=== PATIENT | male | born 1970 | race Caucasian/White ===

== ENCOUNTER 2021-04-25 12:22 | Outpatient (CLI) | payer MEDICAID ==
[2021-04-25 19:25] LABS: BASOPHILS # (AUTO) 0.1 10^3/uL (0.0-0.1); BASOPHILS % (AUTO) 1.7 %; EOSINOPHILS # (AUTO) 0.1 10^3/uL (0.0-0.7); EOSINOPHILS % (AUTO) 2.2 %; HCT - HEMATOCRIT 45.9 % (42.0-52.0); HGB - HEMOGLOBIN 14.9 g/dL (14.0-18.0); LYMPHOCYTES # (AUTO) 1.6 10^3/uL (1.5-3.5); LYMPHOCYTES % (AUTO) 35.7 %; MEAN CORPUSCULAR HEMOGLOBIN 30.7 pg (27.0-31.0); MEAN CORPUSCULAR HGB CONC 32.5 g/dL (32.0-36.0); MEAN CORPUSCULAR VOLUME 94.6 fL (80.0-94.0); MEAN PLATELET VOLUME 11.2 fL (7.4-11.4); MONOCYTES # (AUTO) 0.5 10^3/uL (0.0-1.0); MONOCYTES % (AUTO) 9.8 %; NEUTROPHILS # (AUTO) 2.3 10^3/uL (1.5-6.6); NEUTROPHILS % (AUTO) 50.2 %; PLT - PLATELET COUNT 202 10^3/uL (130-450); RED BLOOD COUNT 4.85 10^6/uL (4.70-6.10); RED CELL DISTRIBUTION WIDTH 12.2 % (12.0-15.0); WHITE BLOOD COUNT 4.6 x10^3/uL (4.8-10.8)
[2021-04-25 19:40] LABS: ALBUMIN 4.7 g/dL (3.2-5.5); ALBUMIN/GLOBULIN RATIO 1.6 (1.0-2.2); ALKALINE PHOSPHATASE 45 IU/L (42-121); ALT ALANINE AMINOTRANSFERASE 28 IU/L (10-60); AST ASPARTATE AMINOTRANSFERASE 21 IU/L (10-42); BILIRUBIN,TOTAL 0.8 mg/dL (0.2-1.0); BUN - BLOOD UREA NITROGEN 16 mg/dL (6-20); CALCIUM 9.6 mg/dL (8.5-10.3); CARBON DIOXIDE - CO2 29 mmol/L (21-32); CHLORIDE 103 mmol/L (101-111); CHOL/HDL RATIO 3.4 (<5.0); CHOLESTEROL 240 mg/dL; CREATININE 0.9 mg/dL (0.6-1.2); GFR - MDRD 89 (>89); GLUCOSE 93 mg/dL (70-100); HDL CHOLESTEROL 70 mg/dL; LDL CHOLESTEROL,CALCULATED 151 mg/dL; LDL/HDL RATIO 2.2 (<3.6); POTASSIUM 4.4 mmol/L (3.5-5.0); SODIUM 141 mmol/L (135-145); TOTAL PROTEIN 7.6 g/dL (6.7-8.2); TRIGLYCERIDES 97 mg/dL; VLDL CHOLESTEROL 19 mg/dL
== END 2021-04-25 12:23 | disposition home or self-care (01) ==
LOC: LAB.S 12:22
PROVIDERS: ATTEND Internal Medicine
DX: Z00.00 Encounter for general adult medical examination without abnormal findings (principal)
CPT/HCPCS: 36415; 80053; 80061; 83721; 84153; 85025

== ENCOUNTER 2021-04-30 06:43 | Day surgery (SDC) | payer MEDICAID ==
[2021-04-30] MEDS ORDERED: LACTATED RINGERS 1,000 ML IV ONE (07:11)
[2021-04-30] MEDS ORDERED: LIDOCAINE-PF 2% 10 ML AMP SUBQ ONE (07:23)
[2021-04-30] MEDS ORDERED: PROPOFOL 500 MG/50 ML 500 MG/50 ML VIAL ONE (07:23)
--- NOTE | 2021-04-30 07:26 | ANESTHESIA ---
Pre-Anesthesia VS, & Labs - Diagnosis GI Bleed - Procedure colonoscopy Vital Signs: Temp Pulse Resp BP Pulse Ox 36.1 C L 57 L 16 124/86 H 97 04/30/21 06:45 04/30/21 06:45 04/30/21 06:45 04/30/21 06:45 04/30/21 06:45 Height: 6 ft Weight (kg): 93 kg Body Mass Index: 27.8 BMI Classification: Overweight - NPO >8 hours - Lab Results Lab results reviewed: Yes Home Medications and Allergies Home Medications: Ambulatory Orders No Known Home Medications 04/30/21 No Known Home Medications 04/30/21 Allergies/Adverse Reactions: Allergies Allergy/AdvReac Type Severity Reaction Status Date / Time No Known Drug Allergies Allergy Verified 04/30/21 07:11 Anes History & Medical History - Anesthetic History Anesthesia Complications: reports: No previous complications Family history of Anesthesia Complications: Denies Family history of Malignant Hyperthermia: Denies - Medical History Cardiovascular: reports: None Pulmonary: reports: None, Other Gastrointestinal: reports: GI bleed Urinary: reports: None Musculoskeletal: reports: Other Endocrine/Autoimmune: reports: None Skin: reports: None Exam General: Alert, Oriented x3 Dental: WNL Mouth Openin Fingerbreadth Neck Mobility: Normal Mallampati classification: II Thyromental Distance: 4-6 cm Respiratory: Lungs clear, Normal breath sounds, No respiratory distress Cardiovascular: Regular rate Neurological: Normal speech Mental/Cognitive Status: Alert/Oriented X3, Normal for patient Cognitive Status: Within normal limits Plan Anesthesia Type: Total IV Consent for Procedure(s) Verified and Reviewed: Yes Code Status: Attempt Resuscitation ASA classification: 2-Mild systemic disease Is this case an emergency?: No
[2021-04-30] MEDS ORDERED: PROPOFOL 200 MG/20 ML VIAL IVP ONE (11:29)
[2021-04-30] MEDS ORDERED: LACTATED RINGERS 100 ML IV ONE (11:45)
[2021-04-30 13:14] VITALS: BP 128/92
--- NOTE | 2021-04-30 17:54 | ANESTHESIA POST OP EVALUATION ---
Anesthesia Post Eval - Post Anesthesia Eval Vitals: Last Vital Signs Temp 36.2 C L 04/30/21 12:45 Pulse 61 04/30/21 12:45 Resp 15 04/30/21 12:45 BP 128/92 H 04/30/21 12:45 Pulse Ox 99 04/30/21 12:45 CV Function Including HR & BP: Stable Pain Control: Satisfactory Nausea & Vomiting: Negative Mental Status: Baseline Respiratory Status: Airway Patent Hydration Status: Satisfactory Anesthesia Complications: None
== END 2021-04-30 06:44 | disposition home or self-care (01) ==
LOC: SDS 06:43
PROVIDERS: ATTEND Surgery
PROC: 0DBP8ZX Excision of Rectum, Via Natural or Artificial Opening Endoscopic, Diagnostic (ICD-10-PCS; 2021-04-30)
PROC: 0DBM8ZZ Excision of Descending Colon, Via Natural or Artificial Opening Endoscopic (ICD-10-PCS; principal; 2021-04-30 07:30)
DX: C20 Malignant neoplasm of rectum (principal); K63.5 Polyp of colon; K64.8 Other hemorrhoids
CPT/HCPCS: 45380; J7120

== ENCOUNTER 2021-05-17 12:58 | Outpatient (CLI) | payer MEDICAID | END 2021-05-17 12:59 | disposition home or self-care (01) | LOC: COV 12:58 | PROVIDERS: ATTEND Student in an Organized Health Care Education/Training Program | DX: Z01.812 Encounter for preprocedural laboratory examination (principal); Z20.822 Contact with and (suspected) exposure to COVID-19 ==

== ENCOUNTER 2021-06-04 14:16 | Outpatient (CLI) | payer MEDICAID | END 2021-06-04 14:17 | disposition home or self-care (01) | LOC: COV 14:16 | PROVIDERS: ATTEND Internal Medicine Gastroenterology | DX: Z01.812 Encounter for preprocedural laboratory examination (principal); Z20.822 Contact with and (suspected) exposure to COVID-19 ==

== ENCOUNTER 2021-06-21 10:14 | Day surgery (SDC) | payer MEDICAID ==
[2021-06-21] MEDS ORDERED: LACTATED RINGERS 1,000 ML IV ONE ×2 (10:50→11:43)
--- NOTE | 2021-06-21 10:53 | ANESTHESIA ---
Pre-Anesthesia VS, & Labs - Diagnosis Rectal Cancer - Procedure Port placement Vital Signs: Temp Pulse Resp BP Pulse Ox 36.3 C L 42 L 16 113/72 98 06/21/21 10:22 06/21/21 10:22 06/21/21 10:22 06/21/21 10:22 06/21/21 10:22 Height: 5 ft 11 in Weight (kg): 91.2 kg Body Mass Index: 28.0 BMI Classification: Overweight - NPO Last Fluid Intake: 0500 tea Home Medications and Allergies Capecitabine [Xeloda] 1,500 mg PO BID 05/26/21 Capecitabine [Xeloda] 300 mg PO BID 05/26/21 Allergies/Adverse Reactions: Allergies Allergy/AdvReac Type Severity Reaction Status Date / Time No Known Drug Allergies Allergy Verified 04/30/21 07:11 Anes History & Medical History - Anesthetic History Anesthesia Complications: reports: No previous complications - Medical History Cardiovascular: reports: None Pulmonary: reports: None Gastrointestinal: reports: GI bleed Urinary: reports: None Neuro: reports: None Musculoskeletal: reports: Chronic back pain, Other Endocrine/Autoimmune: reports: None Blood Disorders: reports: None Skin: reports: Psoriasis Smoking Status: Former smoker Psychosocial: reports: No issues indicated History of Cancer?: Yes (rectal cancer) - Surgical History General: reports: Colonoscopy Exam General: Alert, Oriented x3, Cooperative Dental: WNL Mouth Openin Fingerbreadth Neck Mobility: Normal Mallampati classification: II Thyromental Distance: 4-6 cm Mental/Cognitive Status: Alert/Oriented X3, Normal for patient Plan Anesthesia Type: Total IV Regional Block: Per Surgeon's request for Post Op pain control Consent for Procedure(s) Verified and Reviewed: Yes Code Status: Attempt Resuscitation ASA classification: 2-Mild systemic disease Is this case an emergency?: No
[2021-06-21] MEDS ORDERED: MIDAZOLAM 2 MG/2 ML VIAL ONE (10:54)
[2021-06-21] MEDS ORDERED: PROPOFOL 200 MG/20 ML VIAL IVP ONE (10:56)
[2021-06-21] MEDS ORDERED: BUPIVACAINE 0.5% PF 10 ML VIAL SUBQ ONE (11:19)
[2021-06-21] MEDS ORDERED: LIDOCAINE MPF 2%-EPI 1:200000 10 ML VIAL SUBQ ONE (11:19)
[2021-06-21] MEDS ORDERED: SODIUM CHLORIDE 0.9% 10 ML VIAL IVP ONE (11:19)
--- NOTE | 2021-06-21 11:43 | OPERATIVE REPORT ---
Operative Report - General Procedure Date: 06/21/21 Planned Procedure: Left subclavian [id number] Pre-Op Diagnosis: Rectal cancer Procedure Performed: Left subclavian [id number] Post Op Diagnosis: Rectal cancer - Procedure Note Primary Surgeon: Anali Anesthesia Provider: Emre Anesthesia Technique: MAC Estimated Blood Loss (mL): 10 Findings: Port in good position in the superior vena cava Complications: None apparent - Other Other Information/Narrative: After obtaining informed consent, the patient is brought to the operating room and placed in supine position on the operating table. Following successful induction of sedation with monitored anesthesia care and appropriate padding of all bony prominences, the left chest and neck were prepped and draped in the standard surgical fashion. A timeout was held per scope protocol. All elements of the surgical safety checklist were followed before, during, and after the procedure. Following infiltration with local anesthetic to create a field block, the left subclavian vein was accessed in the deltopectoral groove. The J-wire was gently placed into the vein. Fluoroscopy was used to confirm the position of the wire and in the subclavian vein. We anesthetized the existing healed scar in the area around it for placement of the port itself. An incision was created here and carried down through the skin and subcutaneous tissue. A pocket was created with blunt dissection. The port tubing was attached to the tunneling device and passed from the access site of the vein into the pocket. It was trimmed to an appropriate length and the port attached. The port was sewn into place in the pocket. The dilator and introducer were then passed over the J-wire that was in the subclavian vein. The J-wire and dilator were removed leaving only the introducer. The tubing was then passed through the introducer and the introducer cracked and removed per pipe layer helper's directions. The port was then checked for function and flushed and taco easily. Additional local anesthetic was applied to the chest wall. The port pocket was closed with interrupted Vicryl sutures and Monocryl stitches were placed in both skin incision sites. All sponge, needle, and instrument counts were correct at the conclusion of the case. Chest x-ray in the postanesthesia care unit revealed the port in good position in the superior vena cava without evidence of pneumothorax.
[2021-06-21 12:16] VITALS: BP 134/78
--- NOTE | 2021-06-21 12:17 | XRAY Report ---
PROCEDURE: OR Port-A-Cath INDICATIONS: PORTACATH PLACEMENT TECHNIQUE: Single intraoperative spot fluoroscopic image. COMPARISON: None. FINDINGS: A left-sided venous catheter is seen with tip projecting over the superior vena cava. IMPRESSION: Catheter tip seen projecting over the superior vena cava. Reviewed by: Eliazar Murguia MD on 06/21/2021 12:15 PM PST Approved by: Eliazar Murguia MD on 06/21/2021 12:15 PM PST Station ID: [id number]
--- NOTE | 2021-06-21 12:19 | XRAY Report ---
PROCEDURE: Chest for Line Placement INDICATIONS: Left port placement TECHNIQUE: One view of the chest was acquired. COMPARISON: Intraoperative image performed earlier the same day. FINDINGS: Surgical changes and devices: A left-sided Port-A-Cath is seen with catheter tip projecting over the mid superior vena cava. Lungs and pleura: No pleural effusions or pneumothorax. Lungs are clear. Mediastinum: Mediastinal contours appear normal. Heart size is normal. Bones and chest wall: No suspicious bony lesions. Overlying soft tissues appear unremarkable. IMPRESSION: Left-sided Port-A-Cath with catheter tip projecting over the superior vena cava. No pneumothorax. Reviewed by: Eliazar Murguia MD on 06/21/2021 12:18 PM PST Approved by: Eliazar Murguia MD on 06/21/2021 12:18 PM PST Station ID: [id number]
--- NOTE | 2021-06-21 12:57 | ANESTHESIA POST OP EVALUATION ---
Anesthesia Post Eval - Post Anesthesia Eval Vitals: Last Vital Signs Temp 36.8 C 06/21/21 12:16 Pulse 57 L 06/21/21 12:16 Resp 14 06/21/21 12:16 BP 134/78 H 06/21/21 12:16 Pulse Ox 98 06/21/21 12:16 CV Function Including HR & BP: Stable Pain Control: Satisfactory Nausea & Vomiting: Negative Mental Status: Baseline Respiratory Status: Airway Patent Hydration Status: Satisfactory Anesthesia Complications: None
== END 2021-06-21 10:15 | disposition home or self-care (01) ==
LOC: SDS 10:14
PROVIDERS: ATTEND Surgery
DX: C20 Malignant neoplasm of rectum (principal); Z87.891 Personal history of nicotine dependence
CPT/HCPCS: 36561; 71045; C1788; J7120

== ENCOUNTER 2021-07-05 14:18 | Outpatient (CLI) | payer MEDICAID ==
[2021-07-05 14:30] LABS: BASOPHILS # (AUTO) 0.1 10^3/uL (0.0-0.1); BASOPHILS % (AUTO) 1.5 %; EOSINOPHILS # (AUTO) 0.1 10^3/uL (0.0-0.7); EOSINOPHILS % (AUTO) 1.9 %; HCT - HEMATOCRIT 42.1 % (42.0-52.0); HGB - HEMOGLOBIN 14.4 g/dL (14.0-18.0); LYMPHOCYTES # (AUTO) 1.8 10^3/uL (1.5-3.5); LYMPHOCYTES % (AUTO) 37.3 %; MEAN CORPUSCULAR HEMOGLOBIN 31.3 pg (27.0-31.0); MEAN CORPUSCULAR HGB CONC 34.2 g/dL (32.0-36.0); MEAN CORPUSCULAR VOLUME 91.5 fL (80.0-94.0); MEAN PLATELET VOLUME 10.1 fL (7.4-11.4); MONOCYTES # (AUTO) 0.6 10^3/uL (0.0-1.0); MONOCYTES % (AUTO) 12.4 %; NEUTROPHILS # (AUTO) 2.3 10^3/uL (1.5-6.6); NEUTROPHILS % (AUTO) 46.7 %; PLT - PLATELET COUNT 160 10^3/uL (130-450); RED CELL DISTRIBUTION WIDTH 12.3 % (12.0-15.0); WHITE BLOOD COUNT 4.8 x10^3/uL (4.8-10.8)
[2021-07-05 14:48] LABS: ALBUMIN 4.6 g/dL (3.2-5.5); ALBUMIN/GLOBULIN RATIO 1.6 (1.0-2.2); ALKALINE PHOSPHATASE 56 IU/L (42-121); ALT ALANINE AMINOTRANSFERASE 30 IU/L (10-60); AST ASPARTATE AMINOTRANSFERASE 23 IU/L (10-42); BILIRUBIN,TOTAL 0.5 mg/dL (0.2-1.0); BUN - BLOOD UREA NITROGEN 18 mg/dL (6-20); CALCIUM 9.8 mg/dL (8.5-10.3); CARBON DIOXIDE - CO2 31 mmol/L (21-32); CHLORIDE 100 mmol/L (101-111); CHOL/HDL RATIO 3.5 (<5.0); CHOLESTEROL 188 mg/dL; CREATININE 0.9 mg/dL (0.6-1.2); GFR - MDRD 89 (>89); GLUCOSE 88 mg/dL (70-100); HDL CHOLESTEROL 54 mg/dL; LDL CHOLESTEROL,CALCULATED 107 mg/dL; SODIUM 138 mmol/L (135-145); TOTAL PROTEIN 7.4 g/dL (6.7-8.2); TRIGLYCERIDES 137 mg/dL; VLDL CHOLESTEROL 27 mg/dL
--- NOTE | 2021-07-05 15:28 | ONCOLOGY/HEMATOLOGY VISIT ---
HEME/ONC PROGRESS NOTE: cc: Boogie Wagner MD; Narcisa Hicks MD ONCOLOGY HISTORY: 1. Stage II low rectal cancer, [id number], 06/07/21; 3 cm away from the anal verge a. KIM with FOLFOX6, 06/23/2021 2. Pending genetic counseling. 3. Chemo-induced nausea and dehydration. 4. Headache from Zofran. ASSESSMENT/PLAN: 1. Stage II Low rectal cancer. a. s/p FOLFOX6 x1 . Here for evaluation to start cycle 2 tomorrow, q2w; No Contraindication to do so. b. f/u in 2 weeks for Cycle 3 which will be moved to a Monday schedule. Planning for total 8 cycles or 4 months of duration, then followed by concurrent chemo xeloda and radiation. He wished to avoid surgical resection with colostomy. 2. Acute nausea and Dehydration. Did not eat during the first 2 days while on chemo. Zofran caused much headache. a. Now has Compazine on hand. Encouraged him to use more Compazine and less Zofran. b. We will add 1 L of saline on day 3 when he comes in for pump removal. c. If above interventions not effective, may add olanzapine 5 mg, qdx3. 3. 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 a. Encouraged avoiding cold temperature. Continue ample amount of hydration. HISTORY OF CURRENT ILLNESS/REVIEW OF SYSTEMS: As a dictated on 06/14/21 for details. Patient here for ongoing care regarding above issues. He is accompanied by [place]. [place] [facility]. Cycle 1 chemotherapy 2 weeks ago was complicated with above mentioned toxicities. At this point fully resolved. Very much back to baseline status. 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 Children are out of the home. Past Medical/Surgical/Family/Social History: Previous smoker. Previous drinker. Retired [employer]. Has done previous colostomy wound care work. . Vasectomy 1991. Father had cardiac disease. Mother age 73 of epilepsy. PHYSICAL EXAM: Vital signs reviewed. Stable. HEENT; no jaundice, Lung; Heart; Abdomen; Extremity; no clubbing, no peripheral edema, no cyanosis, Skin. No new rash. No petechia or purpura. Lymph nodes: Blood test result reviewed and report given to the patient. Today's visit involves high complexity decision making for the high risk/life threatening diagnosis of rectal cancer and other comorbidities, requiring anti- cancer/chemotherapy with significant toxicities, that require intensive monitoring, and management of cancer-related symptoms and side effects from anti-cancer treatments as listed in assessment and plan. Medical Decision Making: Number and Complexity of Problems Addressed: High - Acute or chronic illness that poses a threat to life or bodily function, cancer, need for chemotherapy, severe side effects from chemotherapy. Amount and/or complexity of data reviewed and analyzed: Review of external notes, laboratory/radiology results, and test ordering. Assessment requiring independent historian. Discussion of management or test interpretation with external physician Independent interpretation of test performed by another qualified health career guidance technician Risk of Complications and/or Morbidity or Mortality of Patient Management: High - o Decision regarding continuation of anti-cancer therapy, o drug therapy requiring intensive monitoring for toxicity o Decision regarding hospitalization o Decision not to resuscitate or to de-escalate care because of poor prognosis. Overall: High Clinical Data: Allergies No Known Drug Allergies Allergy (Verified 04/30/21 07:11) Home Medications Capecitabine [Xeloda] 1,500 mg PO BID 05/26/21 [History Last Taken Unknown] Capecitabine [Xeloda] 300 mg PO BID 05/26/21 [History Last Taken Unknown] Prochlorperazine Maleate [Compazine] 10 mg PO Q6HR PRN 06/23/21 [History Last Taken Unknown] Recent Lab Results 07/05/21 14:25: Sodium 138, Potassium 4.0, Chloride 100 L, Carbon Dioxide 31, Anion Gap 7.0, BUN 18, Creatinine 0.9, Estimated GFR (MDRD) 89, Glucose 88, Calcium 9.8, Total Bilirubin 0.5, AST 23, ALT 30, Alkaline Phosphatase 56, Total Protein 7.4, Albumin 4.6, Globulin 2.8, Albumin/Globulin Ratio 1.6, Triglycerides 137, Cholesterol 188, LDL Cholesterol, Calc 107, VLDL Cholesterol 27, HDL Cholesterol 54 L, LDL/HDL Ratio 2.0, Cholesterol/HDL Ratio 3.5 07/05/21 14:25: Prostate Specific Ag 0.639 07/05/21 14:25: WBC 4.8, RBC 4.60 L, Hgb 14.4, Hct 42.1, MCV 91.5, MCH 31.3 H, MCHC 34.2, RDW 12.3, Plt Count 160, MPV 10.1, Neut # (Auto) 2.3, Lymph # (Auto) 1.8, [place] # (Auto) 0.6, Eos # (Auto) 0.1, Baso # (Auto) 0.1, Absolute Nucleated RBC 0.00, Nucleated RBC % 0.0
== END 2021-07-05 14:19 | disposition home or self-care (01) ==
LOC: LAB 14:18
DX: Z00.00 Encounter for general adult medical examination without abnormal findings (principal)
CPT/HCPCS: 36415; 80053; 80061; 83721; 84153; 85025

== ENCOUNTER 2021-09-04 07:10 | Outpatient (CLI) | payer MEDICAID ==
--- NOTE | 2021-09-04 09:56 | Ultrasound Report ---
PROCEDURE: Abdomen Limited INDICATIONS: ELEVATED LIVER ENZYMES TECHNIQUE: Real-time focused scanning was performed of the abdomen, with image documentation. COMPARISON: None FINDINGS: The liver demonstrates mildly enlarged size. The liver demonstrates moderately increased echogenicity, which limits ultrasound sensitivity for detection of masses. No gallstones or sludge can be seen. The gallbladder wall does not appear thickened. There is no spec ific pericholecystic fluid. The sonographic Altamirano's sign is negative. No biliary ductal dilatation is seen. The common bile duct measures 3 mm. The visualized pancreas is within normal limits. The visualized right kidney is unremarkable. IMPRESSION: Increased liver echogenicity is seen. This is nonspecific, yet it is most commonly attributed to fatt y infiltration. The gallbladder demonstrates a normal sonographic appearance. No biliary dilatation is seen. Reviewed by: Galdino Zheng MD on 09/04/2021 8:55 AM [facility] Approved by: Galdino Zheng MD on 09/04/2021 8:55 AM [facility] Station ID: [id number]
== END 2021-09-04 07:11 | disposition home or self-care (01) ==
LOC: DI 07:10
PROVIDERS: ATTEND Internal Medicine Hematology & Oncology
DX: R94.5 Abnormal results of liver function studies (principal); R93.2 Abnormal findings on diagnostic imaging of liver and biliary tract

== ENCOUNTER 2021-10-04 09:25 | Outpatient (CLI) | payer MEDICAID ==
[2021-10-04] MEDS ORDERED: IOVERSOL 320 50 ML VIAL ONE (09:38)
[2021-10-04] MEDS ORDERED: IOVERSOL 320 100 ML VIAL IVP ONE ×2 (09:38→10:40)
[2021-10-04] MEDS ORDERED: IOVERSOL 320 50 ML VIAL PO ONE (10:39)
--- NOTE | 2021-10-04 12:48 | CT Report ---
PROCEDURE: CHEST W INDICATIONS: RECTAL CA CONTRAST: IV CONTRAST: Optiray 320 ml: 100 PO CONTRAST: Optiray 320 ml50 TECHNIQUE: After the administration of intravenous contrast, 1 mm axial images were acquired from the pulmonary apices through the posterior costophrenic angles. Axial 5 mm soft tissue kernel reconstructions were performed as well as 8 mm axial MIP and coronal and sagittal 5 mm reformations. For radiation dose reduction, the following was used: automated exposure control, adjustment of mA and/or kV according to patient size. COMPARISON: None. FINDINGS: CT CHEST: Thyroid: Homogeneous. Vasculature: The thoracic aorta and arch vasculature have a normal contrasted appearance and are norm al size and contour. No evidence for dissection. A left rudolph catheter is seen with tip in the IVC. Heart: No cardiomegaly or significant pericardial effusion. Mediastinum: No pathologic lymph node enlargement by size criteria. Lung/pleura: No pleural effusion, consolidation, or pneumothorax. Tracheobronchial tree: Patent. Upper abdomen: No significant abnormality. Bones: No significant abnormality. Chest wall: The chest wall and axilla are within normal limits. IMPRESSION: 1.No significant abnormality. Reviewed by: Turner Quiroz MD on 10/04/2021 12:47 PM PST Approved by: Turner Quiroz MD on 10/04/2021 12:47 PM [facility] Station ID: [id number]
--- NOTE | 2021-10-04 13:00 | CT Report ---
PROCEDURE: Abdomen/Pelvis W INDICATIONS: RECTAL CA CONTRAST: IV CONTRAST: Optiray 320 ml: 100 PO CONTRAST: Optiray 320 ml50 TECHNIQUE: After the administration of oral and intravenous contrast, 5 mm thick sections acquired from the diap hragms to the symphysis. 5 mm thick coronal and sagittal reformats were acquired. For radiation dos e reduction, the following was used: automated exposure control, adjustment of mA and/or kV accordin g to patient size. COMPARISON: None. FINDINGS: Gallbladder: The gallbladder is distended with a smooth thin wall. Biliary tree: No intra-or extrahepatic biliary ductal dilatation. Liver: The liver demonstrates normal enhancement, size, and contour. Hepatic steatosis. Spleen: Normal enhancement, size and morphology is seen. Pancreas: No contour deforming mass or inflammatory change. Adrenals: Normal size without masses. Kidneys/ureters: Normal size and morphology. No solid masses or hydronephrosis. Vasculature: No evidence of aneurysm or other significant vascular pathology. Lymphatic system: No pathologic enlargement by size criteria. GI/mesentery: No evidence of intestinal obstruction. Normal appearance of the appendix. Peritoneum/Retroperitoneum: No free intraperitoneal gas or large collection. Urinary bladder: The urinary bladder is distended with a smooth thin wall. Pelvic organs: No significant abnormality. Bones/soft tissues: No significant abnormality. Trace fat-containing umbilical hernia. Small, bowel c ontaining right inguinal hernia with fascial defect measuring 2 cm. IMPRESSION: 1.No significant abnormality. Reviewed by: Tunrer Quiroz MD on 10/04/2021 12:[address] [facility] Approved by: Turner Quiroz MD on 10/04/2021 12:59 PM PST Station ID: [id number]
== END 2021-10-04 09:26 | disposition home or self-care (01) ==
LOC: DI 09:25
PROVIDERS: ATTEND Internal Medicine Hematology & Oncology
DX: C20 Malignant neoplasm of rectum (principal)
CPT/HCPCS: 71260; 74177; Q9967

== ENCOUNTER 2022-06-13 09:37 | Outpatient (CLI) | payer MEDICAID ==
[2022-06-13 10:24] LABS: CHOL/HDL RATIO 3.3 (<5.0); CHOLESTEROL 182 mg/dL; GAMMA GLUTAMYL TRANSPEPTIDASE 30 IU/L (8-55); HDL CHOLESTEROL 55 mg/dL; LDL CHOLESTEROL,CALCULATED 102 mg/dL; LDL/HDL RATIO 1.9 (<3.6); TRIGLYCERIDES 126 mg/dL; VLDL CHOLESTEROL 25 mg/dL
[2022-06-13 10:35] LABS: CRP - C-REACTIVE PROTEIN < 1.0 mg/dL (0-1.0)
[2022-06-14 18:07] LABS: COPPER SERUM OR PLASMA 100 ug/dL (69-132); ZINC PLASMA OR SERUM 67 ug/dL (44-115)
== END 2022-06-13 09:38 | disposition home or self-care (01) ==
LOC: LAB 09:37
PROVIDERS: ATTEND Naturopath
DX: C20 Malignant neoplasm of rectum (principal); R74.01 Elevation of levels of liver transaminase levels; R53.83 Other fatigue; E78.00 Pure hypercholesterolemia, unspecified; M79.10 Myalgia, unspecified site
CPT/HCPCS: 36415; 80061; 82525; 82977; 83090; 83721; 83735; 84630; 85651; 86140

== ENCOUNTER 2023-09-04 10:11 | Outpatient (CLI) | payer BC ==
[2023-09-04 10:46] LABS: CHOLESTEROL 204 mg/dL; CRP - C-REACTIVE PROTEIN < 0.5 mg/dL (<0.5); GAMMA GLUTAMYL TRANSPEPTIDASE 23 IU/L (9-64); HDL CHOLESTEROL 67 mg/dL; LDL CHOLESTEROL,CALCULATED 112 mg/dL; LDL/HDL RATIO 1.7 (<3.6); MAGNESIUM 1.9 mg/dL (1.7-2.3); TRIGLYCERIDES 127 mg/dL (48-352); VLDL CHOLESTEROL 25 mg/dL
[2023-09-05 08:10] LABS: DHEA-SULFATE 98.2 ug/dL (71.6-375.4)
[2023-09-05 21:07] LABS: FREE TESTOSTERONE(DIRECT) 5.6 pg/mL (7.2-24.0)
== END 2023-09-04 10:12 | disposition home or self-care (01) ==
LOC: LAB 10:11
PROVIDERS: ATTEND Naturopath
DX: C20 Malignant neoplasm of rectum (principal); G62.0 Drug-induced polyneuropathy; R53.83 Other fatigue; E78.00 Pure hypercholesterolemia, unspecified; R68.82 Decreased libido; R74.8 Abnormal levels of other serum enzymes; M79.10 Myalgia, unspecified site
CPT/HCPCS: 36415; 80061; 82525; 82627; 82977; 83090; 83721; 83735; 84270; 84402; 84403; 84439; 84443; 84630; 85651; 86140